=== PATIENT | female | born 1940 | race Two or more races ===

== ENCOUNTER 2018-04-14 07:33 | Outpatient (CLI) | payer OTHER ==
[~2018-04-14 07:33] MED LIST: ALLOPURINOL300 MG; AMLODIPINE BES2.5 MG; ATENOLOL25 MG; DIOVAN HCT 320/1 TA2; GLUCOPHAGE XR500 MG; STARLIX120 MG
== END 2018-04-14 07:45 | disposition home or self-care (01) ==
LOC: MAMO-SONO 07:33
DX: Z12.31 Encounter for screening mammogram for malignant neoplasm of breast (principal); Z87.898 Personal history of other specified conditions; N64.4 Mastodynia; M89.9 Disorder of bone, unspecified

== ENCOUNTER 2019-04-16 09:25 | Outpatient (CLI) | payer OTHER | END 2019-04-16 10:19 | disposition home or self-care (01) | LOC: MAMO-SONO 09:25 | DX: N60.12 Diffuse cystic mastopathy of left breast (principal); N64.4 Mastodynia; Z12.31 Encounter for screening mammogram for malignant neoplasm of breast; Z87.898 Personal history of other specified conditions ==

== ENCOUNTER 2019-05-15 10:41 | Emergency (ER) | payer OTHER ==
[~2019-05-15] VITALS: Ht 144.8 cm; Wt 69.9 kg
[2019-05-15] MEDS ORDERED: MICARDIS80 MG (11:13)
[2019-05-15] MEDS ORDERED: GLIMEPIRIDE4 MG (11:13)
[2019-05-15] MEDS ORDERED: UROCIT-K15 MEQ (11:14)
[2019-05-15] MEDS ORDERED: EVISTA60 MG (11:15)
[2019-05-15] MEDS ORDERED: TOPROL XL25 M1 (11:15)
== END 2019-05-15 15:37 | disposition home or self-care (01) ==
LOC: ER 10:41
DX: N20.1 Calculus of ureter (principal); R10.32 Left lower quadrant pain

== ENCOUNTER 2019-08-28 16:00 | Emergency (ER) | payer OTHER ==
[~2019-08-28] VITALS: Ht 152.4 cm; Wt 71.7 kg
[~2019-08-28 16:00] MED LIST changes: +EVISTA60 MG; +GLIMEPIRIDE4 MG; +MICARDIS80 MG; +TOPROL XL25 M1; +UROCIT-K15 MEQ
== END 2019-08-28 18:53 | disposition home or self-care (01) ==
LOC: ER 16:00
DX: R10.11 Right upper quadrant pain (principal); R19.7 Diarrhea, unspecified

== ENCOUNTER 2019-10-17 23:45 | Emergency (ER) | payer OTHER ==
[~2019-10-17] VITALS: Ht 121.9 cm; Wt 67.1 kg
[2019-10-18] MEDS ORDERED: TAMS0.4C PO (08:31)
[2019-10-18] MEDS ORDERED: CEFPROZIL500 MG PO (08:31)
== END 2019-10-18 10:56 ==
LOC: ER 23:45
DX: N21.1 Calculus in urethra (principal); N39.0 Urinary tract infection, site not specified

== ENCOUNTER 2021-02-27 10:56 | Outpatient (CLI) | payer OTHER ==
[~2021-02-27 10:56] MED LIST changes: +CEFPROZIL500 MG PO; +TAMS0.4C PO
== END 2021-02-27 10:57 | disposition home or self-care (01) ==
LOC: NUCLEAR 10:56
PROVIDERS: ATTEND Obstetrics & Gynecology Gynecology
DX: M81.0 Age-related osteoporosis without current pathological fracture (principal)

== ENCOUNTER 2021-03-25 16:55 | Emergency (ER) | payer OTHER ==
[~2021-03-25] VITALS: Ht 142.2 cm; Wt 69.4 kg
[2021-03-25] MEDS ORDERED: ALLOPURINOL100 MG PO (17:09)
[2021-03-25] MEDS ORDERED: EZETIMIBE10 MG PO (17:10)
[2021-03-25] MEDS ORDERED: METOPROLOL SUCC25 MG PO (17:10)
[2021-03-25] MEDS ORDERED: GLIMEPIRIDE4 M1 PO (17:10)
[2021-03-25] MEDS ORDERED: TELMISARTAN80 MG PO (17:10)
[2021-03-25] MEDS ORDERED: AMLODIPINE BESYL5 MG PO (17:10)
[2021-03-25] MEDS ORDERED: METFORMIN HCL500 M4 PO (17:10)
[2021-03-25] MEDS ORDERED: MAXIMUM D3325 MCG PO (17:11)
[2021-03-25] MEDS ORDERED: DICLOFENAC SODI75 MG PO (18:37)
== END 2021-03-25 18:40 | disposition home or self-care (01) ==
LOC: ER 16:55
DX: M25.572 Pain in left ankle and joints of left foot (principal); G89.11 Acute pain due to trauma

== ENCOUNTER 2021-04-27 10:19 | Outpatient (CLI) | payer OTHER ==
[~2021-04-27 10:19] MED LIST changes: +ALLOPURINOL100 MG PO; +AMLODIPINE BESYL5 MG PO; +DICLOFENAC SODI75 MG PO; +EZETIMIBE10 MG PO; +GLIMEPIRIDE4 M1 PO; +MAXIMUM D3325 MCG PO; +METFORMIN HCL500 M4 PO; +METOPROLOL SUCC25 MG PO; +TELMISARTAN80 MG PO
== END 2021-04-27 10:29 | disposition home or self-care (01) ==
LOC: SONOGRAMA 10:19
PROVIDERS: ATTEND Urology
DX: N28.89 Other specified disorders of kidney and ureter (principal); N39.0 Urinary tract infection, site not specified

== ENCOUNTER 2021-07-09 11:39 | Outpatient (CLI) | payer OTHER | END 2021-07-09 11:51 | disposition home or self-care (01) | LOC: RAD 11:39 | PROVIDERS: ATTEND Urology | DX: Q61.02 Congenital multiple renal cysts (principal); N20.0 Calculus of kidney ==

== ENCOUNTER → 2022-08-06 | Outpatient (CLI) | payer OTHER | END | disposition home or self-care (01) | LOC: RAD 11:35 | PROVIDERS: ATTEND Specialist | DX: N60.11 Diffuse cystic mastopathy of right breast (principal); N60.12 Diffuse cystic mastopathy of left breast; N20.0 Calculus of kidney ==

== ENCOUNTER 2022-09-18 12:54 | Outpatient (CLI) | payer OTHER | END 2022-09-18 12:58 | disposition home or self-care (01) | LOC: MRI 12:54 | PROVIDERS: ATTEND Psychiatry & Neurology Pain Medicine | DX: R41.3 Other amnesia (principal); I67.9 Cerebrovascular disease, unspecified | CPT/HCPCS: 70551 ==

== ENCOUNTER 2023-02-26 09:48 | Outpatient (CLI) | payer OTHER | END 2023-02-26 09:57 | disposition home or self-care (01) | LOC: RAD 09:48 | PROVIDERS: ATTEND Urology | DX: N20.0 Calculus of kidney (principal) ==

== ENCOUNTER 2023-10-14 10:20 | Outpatient (CLI) | payer OTHER | END 2023-10-14 10:37 | disposition home or self-care (01) | LOC: MAMO-SONO 10:20 | PROVIDERS: ATTEND Urology | DX: N95.0 Postmenopausal bleeding (principal); Z12.31 Encounter for screening mammogram for malignant neoplasm of breast; N20.0 Calculus of kidney ==

== ENCOUNTER 2024-03-23 10:16 | Outpatient (CLI) | payer OTHER | END 2024-03-23 10:30 | disposition home or self-care (01) | LOC: RAD 10:16 | PROVIDERS: ATTEND Urology | DX: N20.0 Calculus of kidney (principal) ==

== ENCOUNTER 2025-06-08 09:26 | Outpatient (CLI) | payer OTHER | END 2025-06-08 09:45 | disposition home or self-care (01) | LOC: MRI 09:26 | PROVIDERS: ATTEND Neuromusculoskeletal Medicine & OMM | DX: M50.021 Cervical disc disorder at C4-C5 level with myelopathy (principal) | CPT/HCPCS: 72141 ==

== ENCOUNTER 2025-06-08 11:20 | Outpatient (CLI) | payer OTHER | END 2025-06-08 11:21 | disposition home or self-care (01) | LOC: NUCLEAR 11:20 | DX: M81.0 Age-related osteoporosis without current pathological fracture (principal) ==